=== PATIENT | female | born 1965 | race Caucasian/White ===

== ENCOUNTER 2017-10-05 10:06 | Day surgery (SDC) | payer BC ==
[~2017-10-05 10:06] MED LIST: Buffered Lidocaine 0.9% SYRIN* 5 ML/SYR SYRINGE INTRADERM ONE; Famotidine IV* 10 MG/ML 2 ML (20 mg) IV ONE; Ondansetron TAB* 4 MG PO ONE; Sodium Citrate/Citric Acid* 15 ML UDC PO ONE
[2017-10-05] MEDS ORDERED: Ondansetron ODT TAB* 4 MG ONE (10:14)
[2017-10-05] MEDS ORDERED: Sodium Citrate/Citric Acid* 15 ML UDC ONE (10:14)
[2017-10-05] MEDS ORDERED: Famotidine IV* 10 MG/ML 2 ML (20 mg) ONE (10:14)
[2017-10-05] MEDS ORDERED: Ondansetron INJ* 2 MG/ML VIAL ONE (10:26)
[2017-10-05] MEDS ORDERED: Propofol* 10 MG/ML 20 ML BTL IV PUSH ONE (10:26)
[2017-10-05 11:11] LABS: INR 1.42 (0.77-1.02)
[2017-10-05] MEDS ORDERED: fentaNYL* 50 MCG/ML 2 ML VIAL (100 MCG VIAL) ONE ×3 (11:24→14:34)
[2017-10-05] MEDS ORDERED: Lidocaine 2% PF * 5 ML VIAL ONE (11:24)
[2017-10-05] MEDS ORDERED: Midazolam* 1 MG/ML 2 ML VIAL (2 MG) ONE (11:24)
[2017-10-05] MEDS ORDERED: HYDROmorphone INJ* 0.5 MG/0.5 ML SYRINGE IV PRN (13:35)
[2017-10-05] MEDS ORDERED: oxyCODONE/Acetamin 5/325 MG* TAB PO PRN (13:35)
[2017-10-05] MEDS ORDERED: oxyCODONE TAB* 5 MG TAB PO PRN (13:35)
[2017-10-05] MEDS ORDERED: Naloxone* 0.4 MG/ML 1 ML VIAL IV PRN (13:35)
[2017-10-05] MEDS ORDERED: Ondansetron INJ* 2 MG/ML VIAL IV PRN (13:35)
[2017-10-05] MEDS ORDERED: Acetaminophen TAB* 325 MG PO PRN (13:35)
[2017-10-05] MEDS: fentaNYL* 50 MCG/ML 2 ML VIAL (100 MCG VIAL) IV PRN ×3 (13:56→14:37)
[2017-10-05] MEDS ORDERED: hydrALAZINE IV* 20 MG/ML VIAL ONE (14:07)
[2017-10-05] MEDS ORDERED: oxyCODONE/Acetamin 5/325 MG* TAB ONE (14:34)
[2017-10-05 14:51] VITALS: BP 145/93
--- NOTE | 2017-10-05 17:59 | OP ---
DATE OF OPERATION: 10/05/17 - [facility] DATE OF : 65 SURGEON: Shiva Booker MD CABLE STRANDER: None. ANESTHESIA: General endotracheal tube. PRE-OP DIAGNOSIS: Menorrhagia. POST-OP DIAGNOSIS: Menorrhagia. OPERATIVE PROCEDURE: D and C, hysteroscopy, endometrial ablation. ESTIMATED BLOOD LOSS: Minimal. SPECIMEN: Includes endometrium. FINDINGS: Include a normal cavity and difficulty to see tubal ostia well due to patulous cervix. COMPLICATIONS: There was loss of vacuum 1 minute and 12 seconds into the procedure and procedure terminated at that point. DESCRIPTION OF PROCEDURE: The patient identified, procedure identified as a D and C, hysteroscopy, endometrial ablation. The patient was taken to the operating room, prepped and draped in the usual fashion in dorsal lithotomy position under general anesthesia. Cervix was sounded to 9 cm. Cervical length was found to be 3.5 cm making the cavity length 5.5. The hysteroscope was inserted. The above findings were noted. Some difficulty with visualization due to the patulous cervix was noted, but the cavity was well visualized and appeared normal. The sharp curette was inserted and sharp curettage performed. The NovaSure device was opened. The array was checked. The device was placed. It had opening width of 3.5 initially, with manipulation did change. The cavity assessment was performed. The device did not pass. Device was set aside and during that, it was contaminated and a new NovaSure was opened. Again, the device was repassed and the cavity width was down to 4.6 on reassessment giving a power setting of 139. The CO2 perforation test was performed and the device passed. NovaSure ablation took place for 1 minute and 12 seconds before the vacuum was lost and the procedure was terminated. The hysteroscope was reinserted and no perforations were noted. Good endometrial ablation was found throughout the cavity. All instruments were removed from the vagina. Good hemostasis was verified and the patient returned to recovery room in stable condition. All sponge and instrument counts were correct. [id number]/CPS #: [id number] [facility]
== END 2017-10-05 15:09 | disposition home or self-care (01) ==
LOC: OR 10:06
PROVIDERS: ATTEND Obstetrics & Gynecology
DX: N92.0 Excessive and frequent menstruation with regular cycle (principal); N84.0 Polyp of corpus uteri; Q21.1 Atrial septal defect; Z87.891 Personal history of nicotine dependence; Z86.73 Personal history of transient ischemic attack (TIA), and cerebral infarction without residual deficits; Z79.01 Long term (current) use of anticoagulants
CPT/HCPCS: 36415; 85610; 88305; A9270-GY; J0360; J2250; J2405; J2704; J3010